=== PATIENT | male | born 1965 | race Caucasian/White ===

== ENCOUNTER 2017-12-27 18:53 | Emergency (ER) | payer BC ==
[~2017-12-27] VITALS: Ht 182.8 cm; Wt 88.0 kg
--- NOTE | ~2017-12-27 | EKG ---
[place], [place] ELECTROCARDIOGRAM REPORT NAME: CRISTINA BARNHART UNIT #: [id number] ROOM: DOCTOR: STEPHEN COLE MD BIRTHDATE: [birth year] DOS: 12/27/2017 TIME: 19:20:55 RATE AND RHYTHM: Sinus rhythm at 65 beats per minute. RI interval 180 milliseconds, QRS duration 96 milliseconds, corrected QT interval is 409 milliseconds, QRS axis 44. IMPRESSION: Normal sinus rhythm, possible left atrial enlargement, otherwise normal EKG. STEPHEN COLE MD CM:EKGRPT:ELECTROCARDIOGRAM REPORT [id number] STEPHEN COLE MD
[~2017-12-27 18:53] MED LIST: FLUCONAZOLE100 MG PO; LOTRIMIN 1%15 GM T; NKHM PO
[2017-12-27 19:35] LABS: BASO % 0.1 % (0.0-1.0); EOS # 0.1 10*3/uL (0.0-0.4); HEMATOCRIT 38.6 % (42.0-52.0); HEMOGLOBIN 13.5 g/dl (14.0-18.0); LYMPH # 3.1 10*3/uL (1.3-4.4); LYMPH % 37.2 % (27.0-41.0); MEAN CORPUSCULAR HGB 33.6 pg (27.0-31.0); MEAN PLATELET VOLUME 9.4 fl (9.6-12.3); MONO # 0.7 10*3/uL (0.1-1.0); NEUT # 4.4 10*3/uL (2.3-7.9); NEUT % 53.3 % (47.0-73.0); PLATELET COUNT AUTOMATED 188 10*3/uL (130-400); RED BLOOD COUNT 4.02 10*6/uL (4.50-5.90); RED CELL DISTRI WIDTH 13.3 % (0-14.5); WHITE BLOOD COUNT 8.3 10*3/uL (4.8-10.8)
[2017-12-27 19:52] LABS: ALKALINE PHOSPHATASE 100 U/L (45-117); BUN 28 mg/dl (7-24); CHLORIDE 109 mmol/L (98-107); CREATININE 1.32 mg/dL (0.70-1.30); POTASSIUM 4.3 mmol/L (3.5-5.1); SGOT/AST 20 IU/L (3-35); SGPT/ALT 29 U/L (12-78); SODIUM 142 mmol/L (136-145); TOTAL PROTEIN 7.7 gm/dL (6.4-8.2)
[2017-12-27 20:17] LABS: TROPONIN I < 0.015 ng/ml (<0.045)
[2017-12-27] MEDS ORDERED: PROAIR HFA8.5 GM INH (21:44)
[2017-12-27] MEDS ORDERED: ZITHROMAX250 MG PO (21:44)
[2017-12-27] MEDS ORDERED: PREDNISONE20 M1 PO (21:44)
== END 2017-12-27 22:00 | disposition home or self-care (01) ==
LOC: ED 18:53
PROVIDERS: Emergency Medicine Emergency Medical Services
DX: J44.0 Chronic obstructive pulmonary disease with (acute) lower respiratory infection (principal); J18.8 Other pneumonia, unspecified organism; F17.200 Nicotine dependence, unspecified, uncomplicated; Z88.6 Allergy status to analgesic agent; Z79.899 Other long term (current) drug therapy; Z98.890 Other specified postprocedural states

== ENCOUNTER → 2018-06-29 | Outpatient (CLI) | payer BC ==
[~2018-06-29] MED LIST changes: +PREDNISONE20 M1 PO; +PROAIR HFA8.5 GM INH; +ZITHROMAX250 MG PO
== END | disposition home or self-care (01) ==
LOC: RAD 12:40
DX: Z71.6 Tobacco abuse counseling (principal)

== ENCOUNTER 2021-12-12 13:34 | Emergency (ER) | payer OTHER ==
[~2021-12-12] VITALS: Ht 182.8 cm; Wt 100.7 kg
[~2021-12-12 13:34] MED LIST changes: +CEFTRIAXON2 GM/50 ML IV; +VIBRAMYCIN100 MG PO; +VITAMIN D5000 UNI1 PO
[2021-12-12] MEDS ORDERED: VICO10300 PO (16:34)
== END 2021-12-12 16:38 | disposition home or self-care (01) ==
LOC: ED 13:34
DX: S82.831A Other fracture of upper and lower end of right fibula, initial encounter for closed fracture (principal); Z88.8 Allergy status to other drugs, medicaments and biological substances; Z88.0 Allergy status to penicillin; Z90.89 Acquired absence of other organs; Z87.891 Personal history of nicotine dependence; X50.1XXA Overexertion from prolonged static or awkward postures, initial encounter; Y93.89 Activity, other specified; Y92.89 Other specified places as the place of occurrence of the external cause; Y99.8 Other external cause status

== ENCOUNTER → 2021-12-18 | Day surgery (SDC) | payer OTHER ==
[2021-12-17 10:56] VITALS: BP 124/63
[~2021-12-18] VITALS: Ht 182.8 cm; Wt 102.1 kg
[~2021-12-18] MED LIST changes: +VICO10300 PO
[2021-12-18 09:13] VITALS: BP 134/69
[2021-12-18 12:07] VITALS: BP 98/51
[2021-12-18 12:25] VITALS: BP 110/56
[2021-12-18 12:37] VITALS: BP 123/62
[2021-12-18 12:52] VITALS: BP 131/60
[2021-12-18 13:10] VITALS: BP 129/74
== END | disposition home or self-care (01) ==
LOC: SDC 12-17 11:00
PROVIDERS: ATTEND Orthopaedic Surgery
DX: S82.62XA Displaced fracture of lateral malleolus of left fibula, initial encounter for closed fracture (principal); S93.421A Sprain of deltoid ligament of right ankle, initial encounter; Z98.890 Other specified postprocedural states; V87.8XXA Person injured in other specified noncollision transport accidents involving motor vehicle (traffic), initial encounter; Y93.89 Activity, other specified; Y92.89 Other specified places as the place of occurrence of the external cause; Y99.8 Other external cause status

== ENCOUNTER → 2022-01-01 | Outpatient (CLI) | payer OTHER | END | disposition home or self-care (01) | LOC: ORTHO 00:12 | PROVIDERS: ATTEND Orthopaedic Surgery | DX: S82.62XD Displaced fracture of lateral malleolus of left fibula, subsequent encounter for closed fracture with routine healing (principal); R22.42 Localized swelling, mass and lump, left lower limb; X58.XXXD Exposure to other specified factors, subsequent encounter ==

== ENCOUNTER → 2022-01-30 | Outpatient (CLI) | payer OTHER | END | disposition home or self-care (01) | LOC: ORTHO 00:35 | PROVIDERS: ATTEND Orthopaedic Surgery | DX: S82.62XD Displaced fracture of lateral malleolus of left fibula, subsequent encounter for closed fracture with routine healing (principal); X58.XXXD Exposure to other specified factors, subsequent encounter ==

== ENCOUNTER → 2022-03-13 | Outpatient (CLI) | payer OTHER | END | disposition home or self-care (01) | LOC: ORTHO 00:42 | PROVIDERS: ATTEND Orthopaedic Surgery | DX: S82.62XD Displaced fracture of lateral malleolus of left fibula, subsequent encounter for closed fracture with routine healing (principal); M77.32 Calcaneal spur, left foot; X58.XXXD Exposure to other specified factors, subsequent encounter ==

== ENCOUNTER 2024-12-19 01:23 | Emergency (ER) | payer SELFPAY ==
[~2024-12-19] VITALS: Ht 187.9 cm; Wt 83.9 kg
[2024-12-19] MEDS ORDERED: SODIUM CHLORIDE 0.9% 1,000 ML IV ONE (02:05)
[2024-12-19 02:25] LABS: BASO % 0.4 % (0.0-1.0); EOS # 0.2 10*3/uL (0.0-0.4); EOS % 2.1 % (1.0-4.0); HEMATOCRIT 37.8 % (42.0-52.0); MEAN CELL VOLUME 94.5 fl (80.0-94.0); MEAN CORPUSCULAR HGB 32.8 pg (27.0-31.0); MEAN CORPUSCULAR HGB CONC 34.7 g/dl (33.0-37.0); MEAN PLATELET VOLUME 8.9 fl (9.6-12.3); MONO # 0.9 10*3/uL (0.1-1.0); MONO % 12.1 % (3.0-9.0); NEUT # 3.6 10*3/uL (2.3-7.9); NEUT % 46.1 % (47.0-73.0); PLATELET COUNT AUTOMATED 209 10*3/uL (130-400); RED CELL DISTRI WIDTH 12.6 % (0-14.5); WHITE BLOOD COUNT 7.7 10*3/uL (4.8-10.8)
[2024-12-19 02:36] LABS: BILIRUBIN Negative (Negative); BLOOD Negative (Negative); CLARITY Clear (Clear); COLOR Yellow (Yellow); GLUCOSE Negative (Negative); KETONE Negative (Negative); LEUKO ESTERASE Negative (Negative); NITRITE Negative (Negative); SPECIFIC GRAVITY 1.015 (1.001-1.030); UROBILINOGEN 0.2 E.U./dl (0.0-1.0)
[2024-12-19 02:43] LABS: URINE AMPHETAMINES Negative (1000ng/ml); URINE BARBITURATES Negative (200ng/ml); URINE BENZODIAZEPINES Negative (200ng/ml); URINE CANNABINOIDS (THC) Negative (50ng/ml); URINE COCAINE Negative (300ng/ml); URINE METHADONE Negative (300ng/ml); URINE OPIATES Negative (300ng/ml); URINE PHENCYCLIDINE Negative (25ng/ml)
[2024-12-19 02:47] LABS: ALKALINE PHOSPHATASE 79 U/L (46-116); BUN 16 mg/dl (9-23); CHLORIDE 107 mmol/L (98-107); ETHYL ALCOHOL 72.9 mg/dl (<3); SGPT/ALT 23 U/L (5-49); TOTAL PROTEIN 7.2 gm/dL (6.0-8.0)
[2024-12-19 02:56] LABS: WBC 0-2 wbc/hpf (0-5)
[2024-12-19] MEDS ORDERED: ASPIRIN, CHEWABLE 81 MG TAB PO ONE (03:25)
== END 2024-12-19 03:51 | disposition left against medical advice (07) ==
LOC: ED 01:23
PROVIDERS: Internal Medicine
DX: R47.89 Other speech disturbances (principal); F17.200 Nicotine dependence, unspecified, uncomplicated; Z79.899 Other long term (current) drug therapy; Z88.0 Allergy status to penicillin; Z88.5 Allergy status to narcotic agent; Z88.6 Allergy status to analgesic agent; Z90.89 Acquired absence of other organs; Z98.890 Other specified postprocedural states